=== PATIENT | male | born 1950 | race African-American/Black ===

== ENCOUNTER 2024-01-09 09:31 | Emergency (ER) | payer MEDICAID ==
[~2024-01-09] VITALS: Ht 182.9 cm; Wt 82.0 kg
[2024-01-09 09:35] VITALS: O2SAT 98
[2024-01-09] MEDS ORDERED: FLUT9.9S16 BOTHNSTRLS (09:58)
[2024-01-09 10:20] VITALS: BP 132/72; PULSE 74; RESP 18; TEMP 37.16964; O2SAT 98
== END 2024-01-09 14:39 | disposition home or self-care (01) ==
LOC: ER 09:31
DX: J01.90 Acute sinusitis, unspecified (principal); Z98.890 Other specified postprocedural states
CPT/HCPCS: 99282